=== PATIENT | female | born 1965 | race African-American/Black ===

== ENCOUNTER 2017-08-08 22:17 | Emergency (ER) | payer MEDICARE, MEDICAID ==
[~2017-08-08] VITALS: Ht 165.1 cm; Wt 93.0 kg
[2017-08-08] MEDS ORDERED: MECLIZINE 25MG TABLET PO ONE (22:45)
[2017-08-08] MEDS ORDERED: ASPIRIN 81MG TABLET PO ONE (23:15)
[2017-08-08 23:26] LABS: CHLORIDE 102 mEq/L (98-107)
[2017-08-08 23:32] LABS: TROPONIN I < 0.02 ng/mL (0.00-0.04)
[2017-08-08 23:34] LABS: BASOPHILS % 0.6 % (0.0-2.0); EOSINOPHILS % 4.4 % (0.0-5.0); HEMOGLOBIN. 12.2 g/dL (12.0-16.0); LYMPHOCYTES % 31.8 % (20.0-50.0); MEAN CORPUSCULAR HEMOGLOBIN 26.2 pg (28.0-32.0); MEAN CORPUSCULAR VOLUME 81.5 fL (81.0-99.0); MEAN PLATELET VOLUME 9.1 fl (7.4-10.4); MONOCYTES % 7.4 % (2.0-8.0); NEUTROPHILS % 55.8 % (40.0-76.0); PLATELET 255 x1000/uL (130-400); RED BLOOD CELL COUNT 4.66 mill/uL (4.2-5.4); RED CELL DISTRIBUTION WIDTH 15.5 % (11.6-14.6)
[2017-08-08 23:39] LABS: PROTHROMBIN TIME 10.2 sec (9.4-11.6)
[2017-08-09 02:26] VITALS: BP 127/79
== END 2017-08-09 02:50 | disposition home or self-care (01) ==
LOC: ER 22:59
DX: R42 Dizziness and giddiness (principal); R94.31 Abnormal electrocardiogram [ECG] [EKG]; E11.9 Type 2 diabetes mellitus without complications; I10 Essential (primary) hypertension; J44.9 Chronic obstructive pulmonary disease, unspecified; R56.9 Unspecified convulsions; Z88.0 Allergy status to penicillin; Z79.82 Long term (current) use of aspirin; Z86.73 Personal history of transient ischemic attack (TIA), and cerebral infarction without residual deficits; Z90.49 Acquired absence of other specified parts of digestive tract
CPT/HCPCS: 36415; 71045; 80053; 83690; 83880; 84484; 85025; 85610; 93005; 99285; J8597